=== PATIENT | female | born 1990 | race Caucasian/White ===

== ENCOUNTER → 2017-05-04 16:01 | Outpatient (CLI) | payer BC, SELFPAY ==
[2015-11-18 12:00] VITALS: BP 116/67
[2017-05-04 15:17] VITALS: BP 103/63; BMI 26.0
[2017-05-04 17:05] LABS: Absolute Lymphocyte Count 2.13 X10^3/ul (0.83-4.51); Basophil# 0.02 X10^3/uL; Basophil% 0.3 % (0-1); Eosinophil# 0.11 X10^3/uL; Eosinophils% 1.6 % (0-5); Hematocrit 34.4 % (37-47); Hemoglobin 11.6 g/dl (12.0-15.0); Lymphocyte # 2.13 X10^3/ul (4.0); Lymphocyte % 31.1 % (19-41); Mean Corp Hgb Conc 33.7 g/gl (32-36); Mean Corpuscular Hgb 29.7 pg (27.0-32.0); Mean Platelet Vol. 9.5 fl (6.2-12.0); Monocyte# 0.56 X10^3/uL; Monocyte% 8.2 % (0-10); Neutrophil # 4.02 X10^3/uL (2.7-7.7); Neutrophil % 58.7 % (47-70); Platelet Count 235 K/mm3 (150-450); RBC Distribution Width SD 38.1 fl (35.1-43.9); Red Blood Count 3.91 M/mm3 (4.2-5.4); White Blood Count 6.9 K/mm3 (4.4-11.0)
[2017-05-04 17:06] LABS: POSITIVE COUNT NO; POSITIVE DIFFERENTIAL NO; POSITIVE MORPHOLOGY NO
[2017-05-05 03:49] LABS: Rapid Plasmin Reagin (RPR) NONREACTIVE (NONREACTIVE)
[2017-05-05 12:07] LABS: HIV - WCH Non-Reactive (Nonreactive); Rubella IgG 82.7 IU/mL
[2017-05-06 10:48] LABS: HEPATITIS B SURFACE AG Negative (Negative)
== END ==
PROVIDERS: Visit Provider Obstetrics & Gynecology
DX: Z34.90 Encounter for supervision of normal pregnancy, unspecified, unspecified trimester (principal)
CPT/HCPCS: 36415; 85025; 86592; 86703; 86762; 86850; 86900; 87340

== ENCOUNTER → 2017-05-04 16:18 | Outpatient (CLI) | payer BC, SELFPAY ==
[2015-11-18 12:00] VITALS: BP 116/67
[2017-05-04 15:17] VITALS: BP 103/63; BMI 26.0
[2017-05-04 20:03] LABS: Chlamydia Trachomatis by PCR Negative (Negative); Neisserai gonorrhoeae by PCR Negative (Negative); Probe Check PASS; Sample Adequacy Control PASS; Specimen Processing Control PASS
== END ==
PROVIDERS: Visit Provider Obstetrics & Gynecology
DX: Z34.90 Encounter for supervision of normal pregnancy, unspecified, unspecified trimester (principal)
CPT/HCPCS: 87086; 87491; 87591

== ENCOUNTER → 2017-05-29 09:40 | Outpatient (CLI) | payer BC, SELFPAY | DX: Z36.82 Encounter for antenatal screening for nuchal translucency (principal) | CPT/HCPCS: 36415 ==

== ENCOUNTER → 2017-07-05 11:28 | Outpatient (CLI) | payer BC, SELFPAY | DX: Z36.82 Encounter for antenatal screening for nuchal translucency (principal) | CPT/HCPCS: 36415 ==

== ENCOUNTER → 2017-07-26 11:29 | Outpatient (CLI) | payer BC, SELFPAY ==
--- NOTE | 2017-07-26 11:30 | US_ITS ---
STUDY: SECOND AND THIRD TRIMESTER OBSTETRICAL ULTRASOUND REASON FOR EXAM: Female, 27 years old. Anatomy. LMP: March 09, 2017. TECHNIQUE: Transabdominal PRIOR ULTRASOUND: None. FINDINGS: There is a single intrauterine fetus. The fetus is in a cephalic presentation. There is demonstrated cardiac activity with a heart rate of 144 bpm. There is a normal amniotic fluid volume. The largest amniotic fluid pocket measures 3.9 cm. The placenta is anterior in location and is not low lying. There are Grade 1 placental changes. The cervix measures 4.42 cm in length. The bilateral adnexal regions are normal. BIOMETRY: BPD: 4.56 cm: 19 weeks, 6 days HC: 16.97 cm: 19 weeks, 5 days AC: 14.63 cm: 20 weeks, 0 days FL: 3.16 cm: 19 weeks, 6 days CI: 79 FL/BPD: 69 FL/HC: FL/AC: 22 HC/AC: 1.16 age by current US: 19 weeks, 6 days. DEX by current US: December 14, 2017. Estimated weight: 317 grams, +/- 46 grams, 45 %. Age by LMP: 19 weeks, 6 days. DEX by LMP: December 14, 2017. ANATOMY: Gender: Female Cranium: Normal lateral ventricles. Normal choroid plexus. Normal cerebellum. Normal cisterna magna. Normal face, nose and lips. Chest: Normal 4-chamber heart. Abdomen/Pelvis: Normal diaphragm. Normal stomach. Normal abdominal wall. Normal cord insertion. Normal 3 vessel cord. Normal kidneys. Normal bladder. Spine: Normal cervical spine. Normal thoracic spine. Normal lumbar spine. Normal sacrum. Extremities: Normal bilateral upper extremities. Normal bilateral lower extremities. US/OB Anatomy Scan IMPRESSION: 1. Live single intrauterine at 19 weeks, 6 days. DEX is December 14, 2017. 2. EFW is 3 17 g. 3. Adequate amniotic fluid. 4. Anterior grade 1 placenta. 5. Vertex orientation. 6. No evidence of anatomic abnormality. Electronically Signed: Gerson Alex DO at 15:59 EDT Tel [phone], Service support ,
== END ==
PROVIDERS: Visit Provider Obstetrics & Gynecology
DX: Z34.81 Encounter for supervision of other normal pregnancy, first trimester (principal)
CPT/HCPCS: 76805

== ENCOUNTER → 2017-09-22 11:39 | Outpatient (CLI) | payer BC, SELFPAY ==
[2017-09-22 12:45] LABS: Absolute Lymphocyte Count 2.11 X10^3/ul (0.83-4.51); Absolute Neutrophil Count 4.7 X10^3/uL (2.0-7.7); Basophil# 0.02 X10^3/uL; Basophil% 0.3 % (0-1); Eosinophil# 0.08 X10^3/uL; Eosinophils% 1.1 % (0-5); Hematocrit 35.4 % (37-47); Hemoglobin 11.9 g/dl (12.0-15.0); Lymphocyte # 2.11 X10^3/ul (4.0); Lymphocyte % 28.9 % (19-41); Mean Corp Hgb Conc 33.6 g/gl (32-36); Mean Corpuscular Hgb 30.1 pg (27.0-32.0); Mean Corpuscular Volume 89.6 fL (81-99); Monocyte% 5.5 % (0-10); Neutrophil # 4.68 X10^3/uL (2.7-7.7); Neutrophil % 63.9 % (47-70); Platelet Count 229 K/mm3 (150-450); RBC Distribution Width CV 12.4 % (11.6-14.6); RBC Distribution Width SD 40.1 fl (35.1-43.9); Red Blood Count 3.95 M/mm3 (4.2-5.4); White Blood Count 7.3 K/mm3 (4.4-11.0)
[2017-09-22 12:46] LABS: POSITIVE COUNT NO; POSITIVE DIFFERENTIAL NO; POSITIVE MORPHOLOGY NO
[2017-09-22 12:53] LABS: Glucose Challenge Gest 1H 50g 104 mg/dL (70-140)
== END ==
PROVIDERS: Visit Provider Nurse Practitioner Women's Health
DX: Z34.90 Encounter for supervision of normal pregnancy, unspecified, unspecified trimester (principal)
CPT/HCPCS: 82950; 85025

== ENCOUNTER 2017-11-16 17:40 | Outpatient (CLI) | payer BC, SELFPAY ==
[2017-11-16 18:14] VITALS: BMI 30.8
--- NOTE | 2017-11-21 04:53 | OB.TRI.NOTE ---
- Problem List (1) Threatened labor Status: Acute History of Present Illness Date of Service: 11/16/17 Was patient seen by the physician?: No Reason For Visit: R/O LABOR Date of Service: 11/16/17 History of Present Illness: co regular ctx Allergies cefprozil [From Cefzil] Allergy (Verified 11/17/17 13:51) Hives - Pertinent Past Medical History Medical History: Past Medical History (Last Reviewed 11/17/17 @ 13:51 by Therese Vasquez) Abnormal Pap smear of cervix Surgical History: Past Surgical History (Last Reviewed 11/17/17 @ 13:51 by Therese Vasquez) delivery delivered Deviated septum NST - FHR Rate Baby A Baseline: 140 Variability:: Moderate Accelerations:: 15 x 15 Decelerations:: None NST Reactive:: Yes FHR Category:: Category I Uterine Activity:: regular Impression/Plan no cervical change, false labor, reactive nst dc home
== END 2017-11-16 19:30 | disposition home or self-care (01) ==
LOC: WPOUT 17:49 → WP 17:50
PROVIDERS: Visit Provider Obstetrics & Gynecology
DX: O47.9 False labor, unspecified (principal); Z3A.00 Weeks of gestation of pregnancy not specified
CPT/HCPCS: 59025; 59050; 99218; G0378

== ENCOUNTER → 2017-11-17 17:44 | Outpatient (CLI) | payer BC, SELFPAY ==
[2017-11-17 22:08] LABS: Group B Strep DNA By PCR Negative (Negative); Internal Control PASS; Probe Check PASS; Specimen Processing Control PASS
== END ==
PROVIDERS: Visit Provider Obstetrics & Gynecology
DX: Z34.90 Encounter for supervision of normal pregnancy, unspecified, unspecified trimester (principal)
CPT/HCPCS: 87081; 87653

== ENCOUNTER 2017-12-14 16:40 | Inpatient (IN) | payer BC, SELFPAY ==
[2017-12-14 17:12] LABS: ROM Internal Control Test YES-OK TO RESULT pt. (Internal QC); ROM Patient Test Negative (Negative)
[2017-12-14] MEDS: Lactated Ringers 1,000 ML 50 ML IV ×3 (17:25→23:19)
[2017-12-14 17:43] VITALS: BMI 31.4
[2017-12-14 17:44] LABS: Hematocrit 34.2 % (37-47); Hemoglobin 11.7 g/dl (12.0-15.0); Mean Corp Hgb Conc 34.2 g/gl (32-36); Mean Corpuscular Hgb 29.3 pg (27.0-32.0); Mean Corpuscular Volume 85.7 fL (81-99); Mean Platelet Vol. 9.2 fl (6.2-12.0); Platelet Count 195 K/mm3 (150-450); RBC Distribution Width CV 12.8 % (11.6-14.6); RBC Distribution Width SD 39.6 fl (35.1-43.9); Red Blood Count 3.99 M/mm3 (4.2-5.4); Scan Indicated on CBC? Y/N NO; White Blood Count 8.3 K/mm3 (4.4-11.0)
--- NOTE | 2017-12-14 18:31 | PCM.HP.OB ---
- Problem List (1) Active labor at term Status: Acute (2) screening encounter Status: Acute Comment: NT done 05/29/17 (3) History of delivery, antepartum Status: Acute Comment: successfull TOLAC x 1, planning another (4) Supervision of normal Status: Acute Qualifiers: Normal : other normal Trimester: third trimester Qualified Code(s): Z34.83 - Encounter for supervision of other normal , third trimester Comment: PRR DEX 12/14/17 girl Jeniffer Asif Will Daniel History Date of Admission: 12/14/17 Final DEX: 12/14/17 Gestational age: 40 Weeks and 0 Days History of this : This is a 27 year-old, at 40 weeks gestational age presents IAL 5-6 cm dilated. she has had an uncomplicated without any issues. she admits clear increased discharge and denies any bleeding, and has been having regular contractions. Medical History: Medical History (Last Reviewed 12/13/17 @ 10:38 by Nhi Courtney) Abnormal Pap smear of cervix R87.619 Surgical History: Surgical History (Last Reviewed 12/13/17 @ 10:38 by Nhi Courtney) delivery delivered O82 Deviated septum J34.2 Allergies cefprozil [From Cefzil] Allergy (Verified 12/13/17 10:39) Hives Home Medications: Home Medications Vits [Prenatabs FA] 1 tab PO DAILY 11/16/15 Smoking Status: Never smoker Alcohol: None Number of Fetus(es): 1 Heart Tracin-130 moderate variability reactive no decels cat I tracing TOCO Analysis: q 3-5 History Past Pregnancies: Past Pregnancies Delivery Date Name GA/Weeks Outcome Route Weight Infant Gender Labor Length Anesthesia Delivery Location Provider FOB Labs: Mom's Labs & Results 12/14/17 12/14/17 12/14/17 16:15 17:25 17:25 WBC 8.3 RBC 3.99 L Hgb 11.7 L Hct 34.2 L MCV 85.7 MCH 29.3 MCHC 34.2 RDW 12.8 RDW Differential 39.6 Plt Count 195 MPV 9.2 Vag Amniotic Fld Detect Negative Blood Type O POSITIVE Antibody Screen NEGATIVE Course Did the patient receive Yes care? Labs Blood Type: O RH: POSITIVE RPR/VDRL/Syphilis Nonreactive Rubella status Immune HbSAg Negative Date Done: 05/04/17 Chlamydia Negative Gonorrhea Negative HIV/AIDS Non-Reactive Group B Strep: Negative Current Obstetrical History Gestational Diabetes No Incompetent Cervix No Infertility No IUGR No Macrosomia No Hypertension/Pre-eclampsia No Placenta Previa/Abruption No PTL/PROM No Uterine anomaly No Oligohydramnios No Polyhydramnios No Multiple gestation No Past Medical History Asthma No Diabetes No Hypertension No Heart disease No Mitral valve prolapse No Neurologic/Seizure disorder/ No Migraines Kidney disease No Liver disease No Varicosities No Clotting disorders/Hx of DVT No Thyroid Dysfunction No Other medical diseases No Psychiatric disorders No Major trauma No Abnormal PAP smear No Sleep apnea No Mammogram in the last 2 years No Social History Marital Status: Alleged father Sergio Hx Smoking No Smoking Status Never smoker How long have you used no substances (years)? What date/time did you last no use any of the above? Expected Delivery Method: Review of Systems Constitutional: Denies: Fever, Malaise Eyes: Denies: Blurred vision, Vision Change HEENT: Denies: Head Aches, Visual Changes Cardiovascular: Denies: Chest Pain, Palpitations Respiratory: Denies: Cough, Shortness of Breath, Wheezing Gastrointestinal: Reports: Abdominal Pain. Denies: Diarrhea, Nausea, Vomiting Genitourinary: Denies: Dysuria, Hematuria Gynecological: Reports: Vaginal discharge Musculoskeletal: Denies: Joint Pain, Muscle pain Skin: Denies: Lesions, Rash Neurological: Denies: Blurred vision, Focal weakness, Headaches Psychiatric: Denies: Anxiety, Depression Endocrine: Denies: Heat/ Cold Intolerance Hematologic/ Lymphatic: Denies: Easy Bruising, Easy Bleeding Physical Exam General: Alert, Cooperative, No apparent distress HEENT: Atraumatic, Normocephalic. Negative for: Thyromegaly, Lymphadenopathy Cardiovascular: Regular rate Lungs: Normal air movement Abdomen: Soft, Non Tender, Gravid Neurological: Deep Tendon Reflexes 2+/4 and Symmetrical, Neuro grossly intact. Negative for: Clonus SUSPENDER CUTTER: Normal external genitalia. Negative for: Vulvar lesions Estimated gestational size: Appropriate for gestational size Presentation: Cephalic Assessment/Plan All Active Problems (Last Reviewed 12/13/17 @ 10:38 by Nhi L Roz) Active labor at term (Acute) (Acute) screening encounter (Acute) History of delivery, antepartum (Acute) Supervision of normal (Acute) Threatened labor (Resolved) This is a 27 year-old, at 40 weeks gestational age. Patient presents IAL, plan expectant management for , pitocin PRN/AROM clear fluid. Pain management: plans epidural. GBS neg. Management of any complications: none I have reviewed the [facility] and made any clinically relevant updates.
[2017-12-14] MEDS: Acetaminophen 325 MG Tablet PO (18:38)
[2017-12-14] MEDS: fentaNYL-bupivacaine (epidural) 100 ML BAG EPIDURAL (19:15)
[2017-12-14] MEDS: Ondansetron 4 MG/2 ML Vial IV (21:45)
[2017-12-14] MEDS: Oxytocin 30 units/NS 500 ml 30 UNITS/500 ML IV.SOLN 334 UNITS IV (23:56)
--- NOTE | 2017-12-15 00:07 | PCM.OB.VAG ---
- Problem List (1) Active labor at term Status: Acute (2) screening encounter Status: Acute Comment: NT done 05/29/17 (3) History of delivery, antepartum Status: Acute Comment: successfull TOLAC x 1, planning another (4) Supervision of normal Status: Acute Qualifiers: Normal : other normal Trimester: third trimester Qualified Code(s): Z34.83 - Encounter for supervision of other normal , third trimester Comment: PRR DEX 12/14/17 girl Jeniffer Arango Daniel Vaginal Delivery Maternal Presentation: Active Labor TOLAC 5-6 cm dilated Amniotic Membrane Rupture Type: Artificial Amniotic Fluid Description: Clear Final DEX: 12/14/17 Gestational age: 40 Weeks Days Date of Procedure: 12/14/17 Pre-Operative Diagnosis: ial Post-Operative Diagnosis: same Surgery/ Procedure Performed: Spontaneous Vaginal Delivery, - - Type of Anesthesia: Epidural Description of Procedure: Patient began pushing and delivered the head in the AGUEDA presentation. The head was delivered atraumatically and the loose nuchal ?1 was identified and easily reduced over the infant's head. The anterior and posterior shoulders delivered without complication followed by the rest of the and the infant was placed on the maternal abdomen. Delayed cord clamping was employed for approximately 60 seconds. Cord was clamped and cut and gentle traction was applied to the cord and the placenta delivered spontaneously immediately following it was noted to be intact with three-vessel cord. The perineum and vagina were inspected and noted to have a second-degree perineal laceration that was repaired in the usual fashion with 3-0 Vicryl repeat. EBL was 200 cc. Patient and infant tolerated delivery well. Presentation: AGUEDA Placental Delivery Description: Spontaneous Placenta Disposition: [facility] Cord Vessel Description: 3 Vessels Cord Entanglement: None Estimated Blood Loss: 200 Infant A gender: Female Episiotomy Description: None Laceration: Perineal Extension/lac, 2nd degree Medications given after delivery: IV Pitocin Complications: None
[2017-12-15] MEDS: Oxytocin 30 units/NS 500 ml 30 UNITS/500 ML IV.SOLN 167 UNITS IV (00:26)
[2017-12-15] MEDS: Lactated Ringers 1,000 ML 15 ML IV (01:00)
[2017-12-15] MEDS: Ibuprofen 600 MG Tablet PO ×4 (01:52→20:00)
[2017-12-15 03:32] VITALS: BP 130/76; PULSE 82; RESP 18; TEMP 36.6
--- NOTE | 2017-12-15 03:38 | NURSING ---
Pt up to BR to void, pt states she could feel a clot come out. Clot fell to the back/base of bowl, unable to visualize clot, will monitor.
[2017-12-15] MEDS: Dibucaine 30 GM Tube 1 APPLIC TOPICAL (03:45)
[2017-12-15] MEDS: Acetaminophen 500 MG Tablet 1000 MG PO ×2 (05:34→14:36)
[2017-12-15] MEDS: Senna/Docusate Sodium 1 Tablet PO (07:25)
[2017-12-15 07:30] VITALS: BP 112/50; PULSE 70; RESP 16; TEMP 37.2
--- NOTE | 2017-12-15 08:27 | PCM.PN.OB ---
Patient Problems: Active and Suspected Problems (Last Reviewed 12/13/17 @ 10:38 by Nhi Courtney) Active labor at term (Acute) Subjective: PPD #1 Doing well. No SOB, CP. - Physical Exam General: Alert, Oriented x3 Abdomen: Soft, Non Tender, - - FF below U Vital Signs Temp Pulse Resp BP 98.9 F 70 16 112/50 L 12/15/17 07:30 12/15/17 07:30 12/15/17 07:30 12/15/17 07:30 Weight: 206 lb 9.17 oz Body Mass Index (BMI) 31.4 Intake and Output for Last 24 Hours 12/13/17 12/14/17 12/15/17 23:59 23:59 23:59 Intake Total 2317 / 2317 625 / 625 Output Total 800 / 800 1650 / 1650 Balance 1517 / 1517 -1025 / -1025 Laboratory Tests Past 24 Hrs 12/14/17 12/14/17 12/14/17 16:15 17:25 17:25 WBC 8.3 RBC 3.99 L Hgb 11.7 L Hct 34.2 L MCV 85.7 MCH 29.3 MCHC 34.2 RDW 12.8 RDW Differential 39.6 Plt Count 195 MPV 9.2 Vag Amniotic Fld Detect Negative Blood Type O POSITIVE Antibody Screen NEGATIVE Medical Necessity - Tobacco Use Smoking Status: Never smoker Assessment/Plan All Active Problems (Last Reviewed 12/13/17 @ 10:38 by Nhi Courtney) Active labor at term (Acute) (Acute) screening encounter (Acute) History of delivery, antepartum (Acute) Supervision of normal (Acute) Threatened labor (Resolved) PPD #1 Routine care. Pain controlled.
[2017-12-15 12:58] VITALS: BP 122/73; PULSE 72; RESP 18; TEMP 36.8
[2017-12-15] MEDS: Prenatal Vits Tablet 1 TABLET PO (13:19)
[2017-12-15 17:00] VITALS: BP 117/72; PULSE 100; RESP 18; TEMP 36.6
[2017-12-15 20:00] VITALS: BP 130/64; PULSE 78; RESP 16; TEMP 36.7
[2017-12-16 00:25] VITALS: BP 117/82; PULSE 75; RESP 16; TEMP 36.9
[2017-12-16] MEDS: Ibuprofen 600 MG Tablet PO ×2 (04:48→12:10)
[2017-12-16] MEDS: Senna/Docusate Sodium 1 Tablet PO (07:08)
[2017-12-16 07:25] VITALS: BP 111/75; PULSE 61; RESP 16; TEMP 36.9; O2SAT 99
--- NOTE | 2017-12-16 08:06 | PCM.PN.OB ---
Patient Problems: Active and Suspected Problems (Last Reviewed 12/13/17 @ 10:38 by Nhi Courtney) Active labor at term (Acute) Subjective: No SOB, CP. Doing well. Pain controlled - Physical Exam General: Alert, Oriented x3 Abdomen: Soft, Non Tender, - - FF below U Vital Signs Temp Pulse Resp BP Pulse Ox 98.4 F 61 16 111/75 99 12/16/17 07:25 12/16/17 07:25 12/16/17 07:25 12/16/17 07:25 12/16/17 07:25 Oxygen Delivery Method Room Air Weight: 206 lb 9.17 oz Body Mass Index (BMI) 31.4 Intake and Output for Last 24 Hours 12/14/17 12/15/17 12/16/17 23:59 23:59 23:59 Intake Total 2317 / 2317 625 / 625 Output Total 800 / 800 1650 / 1650 Balance 1517 / 1517 -1025 / -1025 Medical Necessity - Tobacco Use Smoking Status: Never smoker Assessment/Plan All Active Problems (Last Reviewed 12/13/17 @ 10:38 by Nhi Courtney) Active labor at term (Acute) (Acute) screening encounter (Acute) History of delivery, antepartum (Acute) Supervision of normal (Acute) Threatened labor (Resolved) PPD #2 routine care. Pain controlled. well. Home today.
--- NOTE | 2017-12-16 08:09 | PCM.DCVAG ---
Additional Instructions: If you experience any of the following, contact your healthcare provider. Bleeding that soaks a pad every hour for 2 hours Fever 100.4 or higher Unrelieved incision or abdominal pain Swelling, redness, discharge or bleeding from your incision or episiotomy site Your incision begins to separate Problems urinating (including inability to urinate or burning while urinating). Visual changes Severe headache Flu-like symptoms Pain or redness in one of both of your breasts Pain, warmth, tenderness or swelling in your legs, especially the calf area Frequent nausea and vomiting Symptoms of depression or anxiety If you experience any of the following, call 911 or go to the nearest Emergency Room. Chest pain Problems breathing Seizure activity Partial or complete paralysis of a body part, slurred speech, weakness or drooping of the face, or a sudden inability to walk or hold your balance Allergies/Adverse Reactions: Allergies cefprozil [From Cefzil] Allergy (Verified 12/13/17 10:39) Hives Medications to take at Discharge Vits [Prenatabs FA] 1 tab PO DAILY 11/16/15 Primary Care Physician: Krystyna Leonard [Primary Care Provider] - Test Results: Test results from this visit will be discussed in further detail at your follow-up appointment, if applicable.
--- NOTE | 2017-12-16 08:10 | DCINST_ITS ---
Additional Instructions: If you experience any of the following, contact your healthcare provider. * Bleeding that soaks a pad every hour for 2 hours * Fever 100.4 or higher * Unrelieved incision or abdominal pain * Swelling, redness, discharge or bleeding from your incision or episiotomy site * Your incision begins to separate * Problems urinating (including inability to urinate or burning while urinating) . * Visual changes * Severe headache * Flu-like symptoms * Pain or redness in one of both of your breasts * Pain, warmth, tenderness or swelling in your legs, especially the calf area * Frequent nausea and vomiting * Symptoms of depression or anxiety If you experience any of the following, call 911 or go to the nearest Emergency Room. * Chest pain * Problems breathing * Seizure activity * Partial or complete paralysis of a body part, slurred speech, weakness or drooping of the face, or a sudden inability to walk or hold your balance Allergies/Adverse Reactions: Allergies cefprozil [From Cefzil] Allergy (Verified 12/13/17 10:39) Hives Medications to take at Discharge Vits [Prenatabs FA] 1 tab PO DAILY 11/16/15 Primary Care Physician: Krystyna Leonard [Primary Care Provider] - Test Results: Test results from this visit will be discussed in further detail at your follow- up appointment, if applicable.
[2017-12-16] MEDS: Prenatal Vits Tablet 1 TABLET PO (09:24)
[2017-12-16 13:25] VITALS: BP 110/70; PULSE 64; RESP 16; TEMP 36.9; O2SAT 99
== END 2017-12-16 13:40 | disposition home or self-care (01) | DRG 775 ==
LOC: WPOUT 16:48
PROVIDERS: Admitting Provider Obstetrics & Gynecology; Visit Provider Obstetrics & Gynecology
DX: O34.211 Maternal care for low transverse scar from previous cesarean delivery (principal); N85.8 Other specified noninflammatory disorders of uterus; Z3A.40 40 weeks gestation of pregnancy; Z37.0 Single live birth; O70.1 Second degree perineal laceration during delivery; O69.81X0 Labor and delivery complicated by cord around neck, without compression, not applicable or unspecified
CPT/HCPCS: 59025; 59050; 84112; 85027; 86850; 86900; 99218; J7120; G0378; J2405